=== PATIENT | male | born 1995 | race Caucasian/White ===

== ENCOUNTER 2017-01-25 10:15 | Emergency (ER) | payer SELFPAY ==
[~2017-01-25] VITALS: Ht 172.7 cm; Wt 79.4 kg
[2017-01-25 10:22] VITALS: BP 135/85
--- NOTE | 2017-01-25 10:26 | NUR ---
PATIENT PRESENTS TO ED A PRE BOOK-- . PT STATES . DENIES N/V/D; SKIN IS PINK/WARM/DRY; AAOX4 WITH EVEN AND STEADY GAIT; LUNGS CLEAR BL; HR EVEN AND REGULAR; PT DENIES ANY FEVER, CP, SOB, OR COUGH AT THIS TIME; PATIENT STATES PAIN OF 6/10 AT THIS TIME; VSS; PATIENT POSITIONED FOR COMFORT; HOB ELEVATED; BEDRAILS UP X2; BED DOWN. ER MD MADE AWARE OF PT STATUS.
--- NOTE | 2017-01-25 10:31 | NUR ---
Dr. Tolliver evaluating patient at bedside.
--- NOTE | 2017-01-25 10:43 | NUR ---
PATIENT BIB [facility] POLICE [facility]. PATIENT EXAMINED BY DR. REA. PATIENT MEDICALLY CLEARED AND RELEASED IN CUSTODY IN STABLE CONDITION. ORIGINAL PRE-BOOK FORM GIVEN TO OFFICER DAMIEN .
[2017-01-25 10:44] VITALS: BP 128/80
--- NOTE | 2017-01-25 10:44 | NUR ---
Note [email or web address] in ED - 01/25/17 at 1052 by [facility] PATIENT BIB [facility] POLICE DEPT. PATIENT EXAMINED BY DR. REA. PATIENT MEDICALLY CLEARED AND RELEASED IN CUSTODY IN STABLE CONDITION. ORIGINAL PRE-BOOK FORM GIVEN TO [facility] OFFICER DAMIEN.
== END 2017-01-25 10:42 ==
LOC: MED 10:15
DX: Z02.89 Encounter for other administrative examinations (principal); M54.5 Low back pain; F10.129 Alcohol abuse with intoxication, unspecified; V89.2XXA Person injured in unspecified motor-vehicle accident, traffic, initial encounter; Y93.89 Activity, other specified; Y92.89 Other specified places as the place of occurrence of the external cause; Y99.8 Other external cause status; Y90.9 Presence of alcohol in blood, level not specified